=== PATIENT | male | born 1975 | race Caucasian/White ===

== ENCOUNTER 2019-06-11 22:50 | Inpatient (IN) | payer OTHER, SELFPAY ==
--- NOTE | 2019-06-11 22:55 | PC.NURSE ---
Introduced self to patient and initiated vital signs. Patient presents A&O x 4. NAD, ABCs intact, MAEW and agreeable to treatment. Respirations are even and unlabored. Pt states that the chief complaint for the ER visit today is due to SI. Pt states that he plans to shoot himself and has access to firearms. Pt denies any vision disturbances or lightheadedness. Bed left in lowest position in semi-fowlers with side rails up. Pt placed in blue scrubs and all items removed from room. Reassured patient of needs and will continue to monitor. Awaiting provider at bedside.
[2019-06-11 22:56] VITALS: BP 169/114; PULSE 93; RESP 18; TEMP 37; O2SAT 99; BMI 43.0
--- NOTE | 2019-06-11 23:13 | ED_ITS ---
Entered by Mary Jane Guzman, acting as scribe for Noe Shea MD HPI - Psych General: Chief Complaint: Psychiatric Symptoms Stated Complaint: SI Time Seen by Provider: 06/11/19 22:53 Source: patient Mode of arrival: ambulatory History of Present Illness: HPI Narrative: 44 y/o male presents to the ED with complaint of suicidal ideations. Pt states he has been having these thoughts for a while now. He has been on the same psych medications for the past 6 years and states he does not think they are working. He is working to get his medications adjusted by his provider ( Ernestina). Pt states he has a plan to shoot himself. complaint: suicidal ideation Onset (ago): day(s) Duration: getting worse History of same: Yes Relieving factors: none Associated symptoms: Reports suicidal ideation If self harm: admits thoughts of self harm and has plan Review of Systems Const: Denies: fever, chills, body aches or change in appetite Eyes: Denies: blurry vision or eye discomfort ENMT: Denies: throat pain or dental pain Card: Denies: chest pain Resp: Denies: shortness of breath GI: Denies: abdominal pain, nausea, vomiting or diarrhea : Denies: painful urination Musc: Denies: neck pain or back pain Neuro: Denies: headache Psych: Reports: anxiety and suicidal ideation Benitez/Lymph: Denies: easy bruising All/Imm: Denies: hives PFS ED PFSH: Social History Smoking and tobacco status: current every day smoker Physical Exam Const: COMMON NORMALS: no apparent distress and oriented x3 NUTRITIONAL APPEARANCE: obese HENMT: COMMON NORMALS: normocephalic and head/scalp atraumatic HEAD & SCALP: normocephalic and atraumatic Eye: COMMON NORMALS: PERRL and EOMs intact bilaterally PUPIL: Yes PERRL Neck/C-Spine: COMMON NORMALS: full ROM and supple Chest: COMMONS NORMALS: inspection of chest normal and palpation of chest normal Resp: COMMON NORMALS: normal respiratory effort, no retractions, no use of accessory muscles and clear to auscultation bilaterally AUSCULTATION: clear to auscultation bilaterally Cardio: COMMON NORMALS: regular rate, regular rhythm and no murmurs RATE: regular rate RHYTHM: regular rhythm GI: COMMON NORMALS: normal to inspection, nondistended, normoactive bowel sounds, soft to palpation, non-tender and no masses PALPATION: Yes soft Extremity: COMMON NORMALS: normal to inspection and full ROM Neuro: COMMON NORMALS: oriented x3, moves all extremities and no focal motor deficits Psych: COMMON NORMALS: cooperative and speech normal SPEECH: Yes normal speech Skin: COMMON NORMALS: no wounds MDM - Psych MDM Narrative: Medical decision making narrative: Patient presents for suicidal ideation with a plan of kill himself by shooting himself. Patient is medically cleared here and placed under 96-hour hold I spoke to psychiatrist Dr. Sierra and will admit. Lab Data: Labs: Lab Results 06/11/19 06/11/19 Range/Units 23:20 23:20 WBC 12.3 H (4.0-10.0) 10^3/ uL RBC 4.54 (4.1-5.3) 10^6/u L Hgb 14.0 (11.7-16.6) g/dL Hct 42.1 (42.0-52.0) % MCV 92.7 (80-94) fL MCH 30.8 (28.0-34.0) pg MCHC 33.3 (30.0-36.0) g/dL RDW 14.4 (12.1-15.1) % Plt Count 334 (130-400) 10^3/c mm MPV 8.8 (7.4-10.4) fL Neut % (Auto) 63.3 % Lymph % (Auto) 28.1 % Dolores % (Auto) 6.4 % Eos % (Auto) 0.5 % Baso % (Auto) 0.5 % Neut # (Auto) 7.8 H (1.8-7.7) 10^3/u L Lymph # (Auto) 3.5 (0.8-4.8) 10^3/u L Dolores # (Auto) 0.8 (0.2-0.9) 10^3/u L Eos # (Auto) 0.1 (0.0-0.8) 10^3/u L Baso # (Auto) 0.1 (0.0-0.1) 10^3/u L Nucleated RBC % (a uto) 0 % Nucleated RBCs # 0.0 /100WBC Sodium 140 (136-145) mmol/L Potassium 3.1 L (3.5-5.1) mmol/L Chloride 100 (98-107) mmol/L Carbon Dioxide 27 (22-29) mmol/L Anion Gap 16.1 (5-19) BUN 18 (6-20) mg/dL Creatinine 1.0 (0.7-1.2) mg/dL GFR Calculation 81.6 L (90-130) mL/min Glucose 122 H (65-115) mg/dL Calcium 10.3 (8.5-10.5) mg/dL Total Bilirubin 0.5 (0.15-1.2) mg/dL AST 28 (0-40) U/L ALT 31 (0-41) U/L Alkaline Phosphata se 77 (40-130) IU/L Total Protein 7.6 (6.6-8.7) g/dL Albumin 4.3 (3.5-5.2) g/dL Globulin 3.3 (1.3-4.6) g/dL Salicylates < 0.3 L (3-10) mg/dL Acetaminophen < 5.0 L (10-30) ug/mL Ethyl Alcohol < 10 (0-10) mg/dL Discharge Plan Discharge Patient Disposition: Admitted As Inpatient Clinical Impression: Suicidal ideation Condition: Stable Referrals: Xi Do DO [Family Provider] - Coding Level of Care Code ED Skilled Nursing Facility Counselor for Chg Fwd Exam Comprehensive The documentation recorded by the Thomas nieto Ashley, accurately reflects the service I personally performed and the decisions made by , Noe Shea MD Jun 11, 2019 22:50
[2019-06-11 23:35] LABS: Basophils # 0.1 10^3/uL (0.0-0.1); Basophils % 0.5 %; Eosinophils # 0.1 10^3/uL (0.0-0.8); Eosinophils % 0.5 %; Hematocrit 42.1 % (42.0-52.0); Lymphocytes # 3.5 10^3/uL (0.8-4.8); Lymphocytes % 28.1 %; Mean Corpuscular HGB Conc 33.3 g/dL (30.0-36.0); Mean Corpuscular Hemoglobin 30.8 pg (28.0-34.0); Mean Corpuscular Volume 92.7 fL (80-94); Mean Platelet Volume 8.8 fL (7.4-10.4); Monocytes # 0.8 10^3/uL (0.2-0.9); Monocytes % 6.4 %; Neutrophils # 7.8 10^3/uL (1.8-7.7); Neutrophils % 63.3 %; Nucleated Red Blood Cells % 0 %; Platelet Count 334 10^3/cmm (130-400); Red Blood Count 4.54 10^6/uL (4.1-5.3); Red Cell Distribution Width 14.4 % (12.1-15.1); White Blood Count 12.3 10^3/uL (4.0-10.0)
[2019-06-11 23:49] LABS: Alanine Aminotransferase 31 U/L (0-41); Albumin Level 4.3 g/dL (3.5-5.2); Alkaline Phosphatase 77 IU/L (40-130); Anion Gap 16.1 (5-19); Aspartate Amino Transferase 28 U/L (0-40); Blood Urea Nitrogen 18 mg/dL (6-20); Calcium 10.3 mg/dL (8.5-10.5); Carbon Dioxide 27 mmol/L (22-29); Chloride 100 mmol/L (98-107); Globulin 3.3 g/dL (1.3-4.6); Glomerular Filtration Rate 81.6 mL/min (90-130); Glucose 122 mg/dL (65-115); Potassium 3.1 mmol/L (3.5-5.1); Sodium 140 mmol/L (136-145); Total Bilirubin 0.5 mg/dL (0.15-1.2); Total Protein 7.6 g/dL (6.6-8.7)
[2019-06-11 23:59] LABS: Acetaminophen < 5.0 ug/mL (10-30); Alcohol Level < 10 mg/dL (0-10); Salicylate < 0.3 mg/dL (3-10)
[2019-06-12 00:25] LABS: Amphetamines Screen Urine Negative (Negative); Barbiturates Screen Urine Negative (Negative); Benzodiazepines Screen Urine Positive (Negative); Cocaine Screen Urine Negative (Negative); Opiate Screen Urine Negative (Negative); PCP Screen Urine Negative (Negative); THC Screen Urine Negative (Negative)
[2019-06-12] MEDS: LORazepam 1 mg Tablet PO (00:28)
[2019-06-12 01:00] VITALS: BP 144/102; PULSE 90; RESP 16; O2SAT 96
[2019-06-12 01:29] VITALS: BP 153/98; PULSE 80; RESP 18; TEMP 36.8; O2SAT 96
[2019-06-12] MEDS: metoprolol tartrate 25 mg Tablet PO (01:36)
[2019-06-12 01:38] VITALS: BP 138/92
[2019-06-12] MEDS: nicotine 2 mg Gum BUCCAL (05:42)
--- NOTE | 2019-06-12 05:45 | PC.NURSE ---
Pt given nicorete gum
[2019-06-12 06:00] VITALS: BP 150/94; PULSE 88; RESP 18; TEMP 36.7; O2SAT 96
[2019-06-12] MEDS: nicotine 21 mg Patch 1 PATCH TRANSDERMA (09:12)
[2019-06-12] MEDS: pantoprazole DR 40 mg Tablet PO (09:27)
[2019-06-12] MEDS: metoprolol tartrate 50 mg Tablet PO (09:27)
[2019-06-12] MEDS: citalopram 20 mg Tablet 40 MG PO (09:27)
[2019-06-12] MEDS: hydroCHLOROthiazide 25 mg Tablet PO (09:27)
[2019-06-12] MEDS: NON-FORMULARY MEDICATION (Vortioxetine [Trintellix] 10 MG) 20 EACH PO (10:20)
[2019-06-12] MEDS: NON-FORMULARY MEDICATION (Vortioxetine [Trintellix] 20 MG) 20 EACH PO (10:33)
--- NOTE | 2019-06-12 11:57 | PM.NHP ---
Providers/Chief Complaint Admitting Physician: Lei Sierra MD Chief Complaint: SI HPI NPU History of Present Illness Jacinto Viveros is a 44 year old male who reports a history of psychiatric issues going back to when he was maybe 17 years old. He reports that he had gotten into drugs and that is what led to his first hospitalization. He reports around age 16 or 17, he started smoking cigarettes and using marijuana. He reports that that graduated to other drugs and specifically methamphetamines. He says for about 15 to 20 years he was really into the drugs, but for the last ten years he has been clean. He reports that around 2009 he met his current and in 2011 they got . He said around 2009 he had some significant issues surrounding drugs that led to some legal issues. He reports he worked through those legal issues without having to do any detention time, but it really was an eye tower cleaner to the types of things that he was involve in. He reports that he moved to the [facility] in [place]. 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 He reports that he has had some medication trials here and there for what is described as bipolar disorder, however when we talked about symptoms, what he described was more consistent with Cluster B pathology reporting significant mood swings, sometimes within the same day, explosive anger at very little provocation, having mood swings within the span of one day, a lot of insecurities, concerns about abandonment. He reports that what led to his first hospitalization as an adult is that he had a conflict with his . He acknowledged after some discoveries on her part that he was cheating and that has made for a rough patch of time recently. She came home yesterday and reportedly was very angry and frustrated with their current situation which is trying to work this out while they both live in the same house. She was saying that she was done, and he had to leave which led to a conflict, which led to him having suicidal thoughts in one of these explosions that are described. He reports that like often happens in other cases, today he is fine, and he reports that he does not have any angry feelings or any issues. He was recently started on a medication called Trintellix and was additionally getting Celexa ad Xanax. We discussed the absence of a mood stabilizer given the diagnosis of bipolar disorder and given his propensity for mood dysregulation. We discussed the risks, benefits, and alternatives of starting one, and he understood and agreed to proceed as is documented in this note. PSYCHIATRIC HISTORY: This is the second hospitalization. He has been on Arcola, Depakote and some other antidepressants, but denies being on Abilify in the past. He reports he has been on Lamictal in the past, but he cannot remember what was going on and he reports that even with the Arcola and Depakote, that he was using drugs at the time. SUBSTANCE ABUSE HISTORY: As above. He reports he smokes about a pack of cigarettes a day. He maybe has a drink occasionally and that is a rare occurrence. He denies marijuana or any other illicit drug use. FAMILY HISTORY: He has zero information on that, as he was adopted and it was a closed adoption. DEVELOPMENTAL HISTORY: He denied any knowledge of any issues with the or delivery, his mom?s and delivery of him, he learned to walk and talk and met his developmental milestones on time, he reports that he did not need speech therapy, learning support, emotional support or special education classes. He was the oldest in the family that he was adopted into. He has a little sister and little brother who are biological children of the parents and his foster siblings. He reports that his childhood was nothing to speak about. He was well taken care of and he denied emotional, physical or sexual abuse. He did not graduate from high school but did enter the 10th grade. He later got his GED. He endorses being a heterosexual with his longest relationship being ten years which is his last relationship. He has been officially three times and twice. He has a 23 year old son who lives away in [place]. He has a 7 year old daughter who is a biological child along with the 17 and 13 year old daughters that he has raised that are his ?s children. He has never been in the . He endorses being a Yazidi. 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 He reports that he currently lives in a house with the three younger children, ages 7, 13 and 17, and his . PSYCHOSOCIAL HISTORY: LEGAL HISTORY: He has never been in detention, but he had some serious legal involvement secondary to some charges, but he has never spent any time in detention MEDICAL HISTORY: He reports hypertension and sleep apnea. Meds NPU Home Medications Medication Instructions Recorded Confirmed Type alprazolam 0.25 mg PO TID PRN 06/11/19 06/11/19 History citalopram 40 mg PO DAILY 06/11/19 06/11/19 History imipramine pamoate 150 mg PO BEDTIME 06/11/19 06/12/19 History metoprolol ta-hydrochlorothiaz 1 tab PO DAILY 06/11/19 06/11/19 History pantoprazole 40 mg PO DAILY 06/11/19 06/11/19 History simvastatin 20 mg PO QPM 06/11/19 06/12/19 History tramadol 100 mg PO Q6H PRN 06/11/19 06/11/19 History vortioxetine [Trintellix] 20 mg PO DAILY 06/11/19 06/11/19 History Allergies Allergy/AdvReac Type Severity Reaction Status Date / Time Penicillins Allergy Unknown Verified 06/11/19 23:00 [facility] NPU PFSH: Social History Smoking and tobacco status: current every day smoker Mental Status Exam MSE Comments: This is an obese, versus morbidly obese, white male, with adequate dress, grooming, and eye contact. No abnormal movements. Cooperative with exam in no acute distress. Speech was normal rate and volume. Mood described as pretty good; affect congruent. Thought process, organized. Thought content: patient denied any suicidal or homicidal ideation, there were no delusions reported or noted, patient denied any auditory or visual hallucinations. Attention, concentration, and memory appear intact but were not formally tested. He is alert and oriented times three. Insight and judgment are limited. Vitals/I&O/Wt Last Vital Signs Temp 98.0 F 06/12/19 06:00 Pulse 88 06/12/19 06:00 Resp 18 06/12/19 06:00 BP 150/94 06/12/19 06:00 Pulse Ox 96 06/12/19 06:00 Weight last 48 hrs Weight 124.738 kg Data NPU : 06/11/19 23:20 06/11/19 23:20 A&P Assessment and plan (1) Cluster B personality disorder: This is a 44 year old, white male, with a reported history of bipolar disorder, but a long history of addiction which is in remission, as well as behavioral dysregulation consistent with Cluster B pathology, who presents on a 96-hour hold secondary to threats of violence towards himself and others. RECOMMENDATION AND PLAN: Continue current medication. Start Abilify 10 mg po qam. Encourage individual, group, and milieu therapy. Continue q 15-minute checks for safety. Will work to evaluate his intermittent risk for determination of how long to keep him here on the 96-hour hold. Status: Acute Code(s): F60.89 - Other specific personality disorders (2) Bipolar 1 disorder: Status: Acute Code(s): F31.9 - Bipolar disorder, unspecified Involuntary Hold Information 96 Hour Hold: 96 Hour Involuntary Admission: Yes 96 Hour Hold Ending Date: 06/17/19 96 Hour Hold Ending Time: 23:58 Attestations NPU Medical Necessity Statement*: Inpatient hospitalization is medically necessary and the clinically appropriate intervention at this time. We will monitor medications and titrate to affect. Likely length of stay 2 to 4 days. Coding Level of Care Code Acute General Scrap Worker for [facility] F[facility] Diagnoses Cluster B personality disorder F60.89 Bipolar 1 disorder F31.9
[2019-06-12 12:58] VITALS: BP 136/80; PULSE 79; RESP 18; TEMP 37; O2SAT 98
[2019-06-12] MEDS: fixodent 39 gm Tube 1 APPLIC DENTAL (13:15)
[2019-06-12] MEDS: ARIPiprazole 10 mg Tablet PO (15:11)
[2019-06-12] MEDS: ALPRAZolam 0.25 mg Tablet PO (16:39)
[2019-06-12] MEDS: atorvastatin 40 mg Tablet 20 MG PO (17:20)
[2019-06-12 20:30] VITALS: BP 155/89; PULSE 90; RESP 18; TEMP 36.8; O2SAT 98
[2019-06-12] MEDS: trazodone 50 mg Tablet PO (21:09)
[2019-06-12] MEDS: acetaminophen 325 mg Tablet 650 MG PO (21:09)
[2019-06-13] MEDS: TRAMadol 50 mg Tablet 100 MG PO ×2 (05:45→20:39)
--- NOTE | 2019-06-13 05:46 | PC.NURSE ---
Tramadol given for toothache rated 6/10.
[2019-06-13 05:52] VITALS: BP 164/87; PULSE 112; RESP 19; TEMP 36.5; O2SAT 97
[2019-06-13] MEDS: citalopram 20 mg Tablet 40 MG PO (09:14)
[2019-06-13] MEDS: hydroCHLOROthiazide 25 mg Tablet PO (09:16)
[2019-06-13] MEDS: metoprolol tartrate 50 mg Tablet PO (09:16)
[2019-06-13] MEDS: pantoprazole DR 40 mg Tablet PO (09:17)
[2019-06-13] MEDS: NON-FORMULARY MEDICATION (Vortioxetine [Trintellix] 20 MG) 20 EACH PO (09:23)
[2019-06-13] MEDS: nicotine 21 mg Patch 1 PATCH TRANSDERMA (09:29)
[2019-06-13 14:00] VITALS: BP 148/87; PULSE 83; RESP 17; TEMP 37.1; O2SAT 97
--- NOTE | 2019-06-13 16:41 | P.PN_ITS ---
Subjective NPU Subjective: Interval history: Patient presents today very much focused on being able to go home. We discussed the fact that he is on a 96-hour hold, and it is our desire to make sure that he is safe but also that his family and kids are safe. We had a long discussion about the guns and access to weapons, and his Noe was brought into this conversation and is making sure that everything is accounted for. There is reportedly some safe that is only able to be opened by a finger print, or something, and we are discussing the possibilities of how to manage that. He is somewhat frustrated at the fact that he will likely stay again tonight, but it is important, given the threats that he made and the fact that there are guns available, that we mange this issue with caution. Mental Status Exam MSE Comments: This is an obese vs. morbidly obese, white male, with adequate d ress, grooming, and eye contact. No abnormal movements. Cooperative with exam in no acute distress. Speech was slightly decreased rate and volume. Mood described as ?I?m good?; affect slightly irritable. Thought process, organized. Thought content: patient denied any suicidal or homicidal ideation, there were no delusions reported or noted, patient denied any auditory or visual hallucinations. Attention, concentration, and memory appeared intact but were not formally tested. He is alert and oriented times three. Insight and judgment are improving. Vitals/I&O/Wt Last Vital Signs Temp 98.8 F 06/13/19 14:00 Pulse 83 06/13/19 14:00 Resp 17 06/13/19 14:00 BP 148/87 06/13/19 14:00 Pulse Ox 97 06/13/19 14:00 Weight last 48 hrs Weight 124.738 kg Home Medications alprazolam 0.25 mg PO TID PRN 06/11/19 [History Confirmed 06/11/19] citalopram 40 mg PO DAILY 06/11/19 [History Confirmed 06/11/19] imipramine pamoate 150 mg PO BEDTIME 06/11/19 [History Confirmed 06/12/19] metoprolol ta-hydrochlorothiaz 1 tab PO DAILY 06/11/19 [History Confirmed 06/11/19] pantoprazole 40 mg PO DAILY 06/11/19 [History Confirmed 06/11/19] simvastatin 20 mg PO QPM 06/11/19 [History Confirmed 06/12/19] tramadol 100 mg PO Q6H PRN 06/11/19 [History Confirmed 06/11/19] vortioxetine [Trintellix] 20 mg PO DAILY 06/11/19 [History Confirmed 06/11/19] Active Medications Acetaminophen (Tylenol) 650 mg PO Q4H PRN PRN Reason: MILD PAIN Last Admin: 06/12/19 21:09 Dose: 650 mg Documented by: Alprazolam (Xanax) 0.25 mg PO TID PRN PRN Reason: Anxiety Last Admin: 06/12/19 16:39 Dose: 0.25 mg Documented by: Atorvastatin Calcium (Lipitor) 20 mg PO QPM [facility] Last Admin: 06/12/19 17:20 Dose: 20 mg Documented by: Benztropine Mesylate (Cogentin) 1 mg PO BID PRN PRN Reason: Mild Extrapyramidal symptoms Camphor/Menthol/Phenol (Blistex) 1 applic TOPICAL Q1H PRN PRN Reason: DRYNESS Citalopram Hydrobromide (Celexa) 40 mg PO DAILY [facility] Last Admin: 06/13/19 09:14 Dose: 40 mg Documented by: Denture Adhesive (Fixodent) 1 applic DENTAL PRN PRN PRN Reason: denture adhesive Last Admin: 06/12/19 13:15 Dose: 1 applic Documented by: Diphenhydramine HCl (Benadryl) 50 mg IM ONCE PRN PRN Reason: Severe Extrapyramidal Symptoms Diphenhydramine HCl (Benadryl) 50 mg IM Q4H PRN PRN Reason: Severe Aggression Haloperidol (Haldol) 5 mg PO Q4H PRN PRN Reason: AGITATION Haloperidol Lactate (Haldol Inj) 5 mg IM Q4H PRN PRN Reason: Severe Aggression Hydrochlorothiazide (Hctz) 25 mg PO DAILY [facility] Last Admin: 06/13/19 09:16 Dose: 25 mg Documented by: Hydroxyzine Pamoate (Vistaril) 50 mg PO Q6H PRN PRN Reason: ANXIETY Imipramine HCl (Tofranil) 150 mg PO BEDTIME [facility] Last Admin: 06/12/19 21:08 Dose: 150 mg Documented by: Loperamide HCl (Imodium Capsule) 2 mg PO Q6H PRN PRN Reason: DIARRHEA Lorazepam (Ativan) 2 mg IM Q4H PRN PRN Reason: Severe Aggression Metoprolol Tartrate (Lopressor) 50 mg PO DAILY [facility] Last Admin: 06/13/19 09:16 Dose: 50 mg Documented by: Nicotine (Nicoderm 21 Mg Patch) 1 patch TRANSDERMA DAILY PRN PRN Reason: NICOTINE WITHDRAWAL Last Admin: 06/13/19 09:29 Dose: 1 patch Documented by: Nicotine Polacrilex (Nicorette) 2 mg BUCCAL Q2H PRN PRN Reason: NICOTINE WITHDRAWAL Last Admin: 06/12/19 05:42 Dose: 2 mg Documented by: Non-Formulary Medication ( Vortioxetine [ Trintellix] 10 Mg) 20 mg PO DAILY [facility] Last Admin: 06/12/19 10:20 Dose: 20 mg Documented by: Non-Formulary Medication (Vortioxetine [Trintellix]) 20 mg PO DAILY [facility] Last Admin: 06/13/19 09:23 Dose: 20 mg Documented by: Olanzapine (Zyprexa Zydis) 5 mg PO Q4H PRN PRN Reason: Agitation/Psychosis Ondansetron HCl (Zofran) 4 mg PO Q6H PRN PRN Reason: NAUSEA AND VOMITING Pantoprazole Sodium (Protonix) 40 mg PO DAILY [facility] Last Admin: 06/13/19 09:17 Dose: 40 mg Documented by: Tramadol HCl (Ultram) 100 mg PO Q6H PRN PRN Reason: Moderate Pain (Scale Score 5-6) Last Admin: 06/13/19 05:45 Dose: 100 mg Documented by: Trazodone HCl (Desyrel) 50 mg PO BEDTIME PRN PRN Reason: SLEEP Last Admin: 06/12/19 21:09 Dose: 50 mg Documented by: Data NPU : 06/11/19 23:20 06/11/19 23:20 A&P Assessment and plan (1) Bipolar 1 disorder: This is a 44 year old, white male, with a reported history of bipolar disorder, but a long history of addiction which is in remission, as well as behavioral dysregulation consistent with Cluster B pathology, who presents on a 96-hour hold secondary to threats of violence towards himself and others. RECOMMENDATION AND PLAN: Continue current medication. Encourage individual, group, and milieu therapy. Continue q 15-minute checks for safety. Will work to evaluate his imminent risk for determination of how long to keep him here on the 96-hour hold. Working to make sure guns have been secured. reporting so. Status: Acute Code(s): F31.9 - Bipolar disorder, unspecified (2) Cluster B personality disorder: Status: Acute Code(s): F60.89 - Other specific personality disorders (3) Suicidal ideation: Status: Acute Code(s): R45.851 - Suicidal ideations Involuntary Hold Information 96 Hour Hold: 96 Hour Involuntary Admission: Yes 96 Hour Hold Ending Date: 06/17/19 96 Hour Hold Ending Time: 23:58 Attestations NPU Medical Necessity Statement*: Inpatient hospitalization is medically necessary and the clinically appropriate intervention at this time. We will monitor medications and titrate to affect. Likely length of stay 1-3 days. Tentative plan for d/c tomorrow. Coding Level of Care Code Acute Mogul Operator for [facility] Diagnoses Bipolar 1 disorder F31.9 Cluster B personality disorder F60.89 Suicidal ideation R45.851
[2019-06-13] MEDS: atorvastatin 40 mg Tablet 20 MG PO (17:49)
[2019-06-13] MEDS: ALPRAZolam 0.25 mg Tablet PO (17:52)
[2019-06-13 20:24] VITALS: BP 137/86; PULSE 86; RESP 20; TEMP 36.7; O2SAT 98
[2019-06-13] MEDS: trazodone 50 mg Tablet PO (20:39)
--- NOTE | 2019-06-13 20:42 | PC.NURSE ---
hs meds given
--- NOTE | 2019-06-13 20:43 | PC.NURSE ---
hs meds given
[2019-06-14 05:55] VITALS: BP 145/94; PULSE 116; RESP 19; TEMP 36.6; O2SAT 98
[2019-06-14] MEDS: citalopram 20 mg Tablet 40 MG PO (08:52)
[2019-06-14] MEDS: hydroCHLOROthiazide 25 mg Tablet PO (08:53)
[2019-06-14] MEDS: pantoprazole DR 40 mg Tablet PO (08:53)
[2019-06-14] MEDS: metoprolol tartrate 50 mg Tablet PO (08:53)
[2019-06-14] MEDS: NON-FORMULARY MEDICATION (Vortioxetine [Trintellix] 10 MG) 20 EACH PO (08:54)
[2019-06-14] MEDS: nicotine 21 mg Patch 1 PATCH TRANSDERMA (08:55)
[2019-06-14 14:00] VITALS: BP 134/89; PULSE 89; RESP 18; TEMP 37.3
--- NOTE | 2019-06-14 15:29 | P.DS_ITS ---
Diagnoses at Discharge Discharge Diagnosis (1) Cluster B personality disorder: Status: Acute (2) Bipolar 1 disorder: Status: Acute Reason for Visit Reason for Visit: Reason For Visit: SI Brief History: HPI NPU History of Present Illness Jacinto Viveros is a 44 year old male who reports a history of psychiatric issues going back to when he was maybe 17 years old. He reports that he had gotten into drugs and that is what led to his first hospitalization. He reports around age 16 or 17, he started smoking cigarettes and using marijuana. He reports that that graduated to other drugs and specifically methamphetamines. He says for about 15 to 20 years he was really into the drugs, but for the last ten years he has been clean. He reports that around 2009 he met his current and in 2011 they got . He said around 2009 he had some significant issues surrounding drugs that led to some legal issues. 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 He reports that he moved to the [facility] in [place]. 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 He reports that he has had some medication trials here and there for what is described as bipolar disorder, however when we talked about symptoms, what he described was more consistent with Cluster B pathology reporting significant mood swings, sometimes within the same day, explosive anger at very little provocation, having mood swings within the span of one day, a lot of insecurities, concerns about abandonment. He reports that what led to his first hospitalization as an adult is that he had a conflict with his . He acknowledged after some discoveries on her part that he was cheating and that has made for a rough patch of time recently. She came home yesterday and reportedly was very angry and frustrated with their current situation which is trying to work this out while they both live in the same house. She was saying that she was done, and he had to leave which led to a conflict, which led to him having suicidal thoughts in one of these explosions that are described. He reports that like often happens in other cases, today he is fine, and he reports that he does not have any angry feelings or any issues. He was recently started on a medication called Trintellix and was additionally getting Celexa ad Xanax. We discussed the absence of a mood stabilizer given the diagnosis of bipolar disorder and given his propensity for mood dysregulation. We discussed the risks, benefits, and alternatives of starting one, and he understood and agreed to proceed as is documented in this note. PSYCHIATRIC HISTORY: This is the second hospitalization. He has been on [place], Depakote and some other antidepressants, but denies being on Abilify in the past. He reports he has been on Lamictal in the past, but he cannot remember what was going on and he reports that even with the [place] and Depakote, that he was using drugs at the time. SUBSTANCE ABUSE HISTORY: As above. He reports he smokes about a pack of cigarettes a day. He maybe has a drink occasionally and that is a rare occurrence. He denies marijuana or any other illicit drug use. FAMILY HISTORY: He has zero information on that, as he was adopted and it was a closed adoption. DEVELOPMENTAL HISTORY: He denied any knowledge of any issues with the or delivery, his mom?s and delivery of him, he learned to walk and talk and met his developmental milestones on time, he reports that he did not need speech therapy, learning support, emotional support or special education classes. He was the oldest in the family that he was adopted into. He has a little sister and little brother who are biological children of the parents and his foster siblings. He reports that his childhood was nothing to speak about. He was well taken care of and he denied emotional, physical or sexual abuse. He did not graduate from high school but did enter the 10th grade. He later got his GED. He endorses being a heterosexual with his longest relationship being ten years which is his last relationship. He has been officially three times and twice. He has a 23 year old son who lives away in [place]. He has a 7 year old daughter who is a biological child along with the 17 and 13 year old daughters that he has raised that are his ?s children. He has never been in the . He endorses being a [employer]. 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 He reports that he currently lives in a house with the three younger children, ages 7, 13 and 17, and his . PSYCHOSOCIAL HISTORY: LEGAL HISTORY: He has never been in fpc, but he had some serious legal involvement secondary to some charges, but he has never spent any time in fpc MEDICAL HISTORY: He reports hypertension and sleep apnea. Hospital Course Hospital Course Jacinto presented to the emergency room after a blow up with his . During that incident he made threats to kill himself with a gun, with access to firearms. He was admitted to the neuro-psych unit on a 96-hour hold for observation. We identified that he had recently started Trintellix, to go along with his Celexa, which had only been onboard for about a week. So, we agreed that we would allow the medication to run it?s course, and identified that his explosion was likely secondary to the conflict between him and his . He later reconsidered and we agreed to discharge with a starting dose of 10mg to begin after discharge. She became aware that he was cheating, two weeks ago, and they are still in the feeling it out phase and she, more or less, decided the day of admission that she had had enough and that maybe he needed to leave; reportedly, she made some comment that she might be intimate with other people, kind of to get back at him. He then reacted out of sorts. He stabilized on the unit without any changes and denied any problems or concerns. We observed him for a few days, given the concerns related to his threats, and worked with the to remove firearms for a period of time, for a cooling off period. During the hospitalization he had routine laboratory studies which were within normal levels except for a few outliers. Additionally, he had a general medical evaluation which he identified was within normal limits and revealed no acute processes. Discharge Summary At the time of discharge he denied all lethality, his mood had stabilized, he wa s not reporting anxiety and endorsed a plan to follow up with outpatient services, as recommended. He was assessed and deemed to be absent credible lethality, and had received the maximum benefit from and inpatient hospitalization, so he was discharged. Involuntary Hold Information 96 Hour Hold: 96 Hour Involuntary Admission: Yes 96 Hour Hold Ending Date: 06/17/19 96 Hour Hold Ending Time: 23:58 Mental Status Exam MSE Comments: This is an obese vs. morbidly obese, white male, with adequate dress, grooming, and eye contact. No abnormal movements. Cooperative with exam in no acute distress. Speech was normal rate and volume. Mood described as pretty good; affect congruent. Thought process, organized. Thought content: patient denied any suicidal or homicidal ideation, there were no delusions reported or noted, patient denied any auditory or visual hallucinations. Attention, concentration, and memory appeared intact but were not formally teste d. He is alert and oriented times three. Insight and judgment are good. Discharge Data Vitals: Last Vital Signs Temp 99.1 F 06/14/19 14:00 Pulse 89 06/14/19 14:00 Resp 18 06/14/19 14:00 BP 134/89 06/14/19 14:00 Pulse Ox 98 06/14/19 05:55 Discharge Plan Discharge Patient Disposition: Home, Self-Care Condition: Stable Prescriptions: New trazodone 100 mg tablet 100 mg PO DAILY PRN (Reason: insomnia) Qty: 30 RF: 1 Trintellix 20 mg tablet 20 mg PO DAILY Qty: 30 RF: 1 Abilify 10 mg tablet 10 mg PO DAILY Qty: 30 RF: 1 Continued citalopram 40 mg Tablet 40 mg PO DAILY RF: 0 metoprolol ta-hydrochlorothiaz 50-25 mg Tablet 1 tab PO DAILY RF: 0 tramadol 50 mg Tablet 100 mg PO Q6H PRN (Reason: Moderate Pain (Scale Score 5-6)) RF: 0 alprazolam 0.25 mg Tablet 0.25 mg PO TID PRN (Reason: Anxiety) RF: 0 pantoprazole 40 mg Tablet,Delayed Release (Dr/Ec) 40 mg PO DAILY RF: 0 simvastatin 20 mg Tablet 20 mg PO QPM RF: 0 imipramine pamoate 150 mg Capsule 150 mg PO BEDTIME RF: 0 Discontinued Trintellix 10 mg Tablet 20 mg PO DAILY RF: 0 Discharge Orders: Discharge Order (Routine); Ordered 06/14/19 Ordered By: Lei Sierra Referrals: Xi Do DO [Family Provider] - Discharge Diet: Regular Discharge Activity: Resume usual activity Discharge Date/Time: 06/14/19 15:56 Discharge Attestations NPU Time Spent in Discharge Care*: greater than 30 min Specific Discharge Activities: Specific discharge activities: educating patient, discussing with case management director/social workers/dc planners, documenting/other paperwork and evaluating patient/reviewing data Coding Level of Care Code Acute Dental Equipment Mechanic for [facility] Fwd Diagnoses Cluster B personality disorder F60.89 Bipolar 1 disorder F31.9
[2019-06-14 15:38] VITALS: BP 134/86; PULSE 89; RESP 18; TEMP 37.7; O2SAT 96
== END 2019-06-14 15:56 | disposition home or self-care (01) | DRG 885 ==
LOC: ER 06-12 00:20 → NP 06-12 00:34
PROVIDERS: Physician Assistant; Admitting Provider Psychiatry & Neurology Psychiatry; Emergency Provider Emergency Medicine; Family Provider Family Medicine; Visit Provider Psychiatry & Neurology Psychiatry
DX: F31.9 Bipolar disorder, unspecified (principal); R45.851 Suicidal ideations; F60.89 Other specific personality disorders; F17.210 Nicotine dependence, cigarettes, uncomplicated
CPT/HCPCS: 12345; 36415; 80053; 80307; 85025; 99284

== ENCOUNTER → 2019-07-25 10:09 | Outpatient (BNVA) | payer OTHER, SELFPAY | PROVIDERS: Family Provider Family Medicine; Visit Provider Counselor Professional | DX: F60.89 Other specific personality disorders (principal); F31.9 Bipolar disorder, unspecified | CPT/HCPCS: 90834 ==

== ENCOUNTER → 2019-08-01 10:04 | Outpatient (BNVA) | payer OTHER, SELFPAY | PROVIDERS: Family Provider Family Medicine; Visit Provider Counselor Professional | DX: F60.89 Other specific personality disorders (principal); F31.9 Bipolar disorder, unspecified; Z63.0 Problems in relationship with spouse or partner | CPT/HCPCS: 90832 ==

== ENCOUNTER → 2024-09-02 15:27 | Outpatient (BNVA) | payer OTHER, SELFPAY | PROVIDERS: Family Provider Family Medicine; Visit Provider Orthopaedic Surgery | DX: M54.9 Dorsalgia, unspecified (principal) | CPT/HCPCS: 72110 ==